=== PATIENT | male | born 1935 | race Hispanic/Latino ===

== ENCOUNTER 2021-11-15 12:24 | Inpatient (IN) | payer MEDICARE, OTHER ==
[~2021-11-15] VITALS: Ht 162.6 cm; Wt 65.8 kg
[2021-11-15 13:06] LABS: BASOPHILS % 0.1 % (0.0-1.0); HEMATOCRIT 28.1 % (38.2-49.6); HEMOGLOBIN 9.2 g/dL (14.0-18.0); LYMPHOCYTES # (AUTO) 0.4 (1.0-3.2); LYMPHOCYTES % 5.5 % (18.0-39.1); MEAN CORPUSCULAR HEMOGLOBIN 31.1 pg (28-32); MEAN CORPUSCULAR HGB CONC 32.7 g/dL (31-35); MEAN CORPUSCULAR VOLUME 94.9 fL (81-99); MONOCYTES # (AUTO) 0.6 (0.2-0.8); MONOCYTES % 8.5 % (4.4-11.3); NEUTROPHILS # (AUTO) 5.7 (2.1-6.9); NEUTROPHILS % 85.8 % (38.7-80.0); PLATELET COUNT 173 x10e3/uL (140-360); RED BLOOD COUNT 2.96 x10e6/uL (4.3-5.7); RED CELL DISTRIBUTION WIDTH 12.4 % (11.7-14.4)
[2021-11-15 13:21] LABS: ANION GAP 11.6 mmol/L (8-16); CALCIUM 8.1 mg/dL (8.4-10.2); CREATININE, SERUM 1.24 mg/dL (0.72-1.25); POTASSIUM 3.6 mmol/L (3.5-5.1)
[2021-11-15 13:33] LABS: CLARITY,URINE TURBID (CLEAR); COLOR,URINE RED (YELLOW); LEUKOCYTE ESTERASE ,URINE LARGE (NEGATIVE)
[2021-11-15 13:34] LABS: KETONES,URINE 1+ (NEGATIVE); NITRITE,URINE POSITIVE (NEGATIVE); PROTEIN,URINE DIPSTICK >=300 (NEGATIVE)
[2021-11-15 13:35] LABS: RBC,URINE >50 /HPF (0-5)
[2021-11-15 13:36] LABS: BACTERIA,URINE MANY /HPF; EPITHELIAL CELLS,URINE FEW /LPF
[2021-11-15] MEDS ORDERED: SODIUM CHLORIDE 0.9% 1000ML 1,000 ML IV ONE (13:45)
[2021-11-15] MEDS ORDERED: SODIUM CHLORIDE 0.9% 1000ML 1,000 ML ONE (13:48)
[2021-11-15] MEDS ORDERED: IOPAMIDOL 370 MG/ML 100 ML INFUS..BTL INJ ONE (13:54)
[2021-11-15] MEDS ORDERED: CEFTRIAXONE 1 GM VIAL IM ONE (14:00)
[2021-11-15] MEDS ORDERED: ACETAMINOPHEN 325 MG TAB PO ONE (14:15)
[2021-11-15] MEDS ORDERED: ONDANSETRON HCL INJ 2MG/ML 2ML 2 MG/ML VIAL IV PRN (16:30)
[2021-11-15 19:30] VITALS: BP 126/55
[2021-11-15] MEDS ORDERED: DOCUSATE SODIUM 100 MG CAP PO PRN (20:00)
[2021-11-15] MEDS ORDERED: ACETAMINOPHEN 325 MG TAB PO PRN (20:00)
[2021-11-15] MEDS ORDERED: FINASTERIDE5 MG PO (20:03)
[2021-11-15] MEDS ORDERED: AMLODIPINE BESYL5 MG PO (20:03)
[2021-11-15] MEDS ORDERED: FLOMAX0.4 MG PO (20:03)
[2021-11-15 20:06] VITALS: BP 126/55
[2021-11-15 21:49] VITALS: BP 126/55
[2021-11-16 05:56] VITALS: BP 133/70
[2021-11-16 06:09] LABS: BASOPHILS % 0.5 % (0.0-1.0); HEMATOCRIT 30.5 % (38.2-49.6); HEMOGLOBIN 9.4 g/dL (14.0-18.0); LYMPHOCYTES # (AUTO) 0.3 (1.0-3.2); LYMPHOCYTES % 5.3 % (18.0-39.1); MEAN CORPUSCULAR HEMOGLOBIN 31.6 pg (28-32); MEAN CORPUSCULAR HGB CONC 30.8 g/dL (31-35); MEAN CORPUSCULAR VOLUME 102.7 fL (81-99); MONOCYTES # (AUTO) 0.6 (0.2-0.8); NEUTROPHILS # (AUTO) 5.4 (2.1-6.9); NEUTROPHILS % 84.7 % (38.7-80.0); PLATELET COUNT 163 x10e3/uL (140-360); RED BLOOD COUNT 2.97 x10e6/uL (4.3-5.7); RED CELL DISTRIBUTION WIDTH 12.7 % (11.7-14.4)
[2021-11-16 06:40] LABS: ALBUMIN 2.6 g/dL (3.5-5.0); ALBUMIN/GLOBULIN RATIO 0.8 (0.8-2.0); ANION GAP 9.9 mmol/L (8-16); CREATININE, SERUM 0.86 mg/dL (0.72-1.25); POTASSIUM 3.9 mmol/L (3.5-5.1)
[2021-11-16 08:00] VITALS: BP 143/65
[2021-11-16] MEDS ORDERED: SODIUM CHLORIDE 0.9% 250ML 250 ML ONE (08:02)
[2021-11-16 08:11] VITALS: BP 143/65
[2021-11-16 11:44] VITALS: BP 102/58
[2021-11-16 15:11] LABS: FERRITIN 117.98 ng/mL (21.81-274.66)
[2021-11-16 16:19] VITALS: BP 97/53
[2021-11-16 20:00] VITALS: BP 122/59
[2021-11-17] VITALS (7 sets, daily range): BP systolic 106–141; BP diastolic 58–97
[2021-11-17] MEDS ORDERED: SODIUM FERRIC GLUCONATE COMPLX 125 MG in SODIUM CHLORIDE 0.9% 100 ML 100 ML IV SCH (09:00)
[2021-11-17] MEDS: CYANOCOBALAMIN INJ 1,000 MCG/ML VIAL IM SCH (09:59)
[2021-11-18] VITALS: BP 125/55
[2021-11-18 04:00] VITALS: BP 136/66
[2021-11-18 07:53] VITALS: BP 139/59
[2021-11-18] MEDS ORDERED: CEPHALEXIN500 MG PO (08:12)
[2021-11-18] MEDS ORDERED: FERROUS SULFAT325 MG PO (08:12)
[2021-11-18] MEDS ORDERED: B-121000 MCG PO (08:12)
[2021-11-18] MEDS: CYANOCOBALAMIN INJ 1,000 MCG/ML VIAL IM SCH (09:12)
[2021-11-18] MEDS ORDERED: ONDANSETRON HCL 4 MG ORAL DISINTEGRATING TAB PO PRN (10:15)
[2021-11-18 20:00] VITALS: BP 143/65
== END 2021-11-18 10:32 | disposition home or self-care (01) | DRG 699 ==
LOC: ER 13:05 → ERHOLD 16:20 → MED/SURG3 19:05
PROVIDERS: ADMIT Internal Medicine; ATTEND Internal Medicine
DX: T83.511A Infection and inflammatory reaction due to indwelling urethral catheter, initial encounter (principal); N17.9 Acute kidney failure, unspecified; N40.1 Benign prostatic hyperplasia with lower urinary tract symptoms; N39.0 Urinary tract infection, site not specified; D64.9 Anemia, unspecified; R33.8 Other retention of urine; R91.8 Other nonspecific abnormal finding of lung field; D50.9 Iron deficiency anemia, unspecified; E53.8 Deficiency of other specified B group vitamins; B96.20 Unspecified Escherichia coli [E. coli] as the cause of diseases classified elsewhere; Z20.822 Contact with and (suspected) exposure to COVID-19
CPT/HCPCS: 36415; 74177; 80048; 80053; 81001; 82607; 82728; 83540; 83605; 84466; 85025; 87040; 87086; 87186; 93005; 99284; J0696; J2916; J3420; J7030; J7050; Q9967; U0002

== ENCOUNTER 2021-11-24 18:20 | Emergency (ER) | payer MEDICARE, OTHER ==
[~2021-11-24] VITALS: Ht 162.6 cm; Wt 65.8 kg
[~2021-11-24 18:20] MED LIST: AMLODIPINE BESYL5 MG PO; B-121000 MCG PO; CEPHALEXIN500 MG PO; FERROUS SULFAT325 MG PO; FINASTERIDE5 MG PO; FLOMAX0.4 MG PO
[2021-11-24 19:25] LABS: BASOPHILS % 0.7 % (0.0-1.0); EOSINOPHILS # (AUTO) 0.1 (0.0-0.4); EOSINOPHILS % 1.4 % (0.0-6.0); HEMATOCRIT 26.4 % (38.2-49.6); HEMOGLOBIN 8.5 g/dL (14.0-18.0); LYMPHOCYTES % 17.5 % (18.0-39.1); MEAN CORPUSCULAR HEMOGLOBIN 31.1 pg (28-32); MEAN CORPUSCULAR HGB CONC 32.2 g/dL (31-35); MEAN CORPUSCULAR VOLUME 96.7 fL (81-99); MONOCYTES # (AUTO) 0.4 (0.2-0.8); MONOCYTES % 6.9 % (4.4-11.3); NEUTROPHILS # (AUTO) 4.2 (2.1-6.9); NEUTROPHILS % 72.6 % (38.7-80.0); PLATELET COUNT 351 x10e3/uL (140-360); RED BLOOD COUNT 2.73 x10e6/uL (4.3-5.7); RED CELL DISTRIBUTION WIDTH 13.6 % (11.7-14.4)
[2021-11-24 19:27] LABS: CLARITY,URINE TURBID (CLEAR); COLOR,URINE RED (YELLOW)
[2021-11-24 19:28] LABS: KETONES,URINE 2+ (NEGATIVE); LEUKOCYTE ESTERASE ,URINE LARGE (NEGATIVE); NITRITE,URINE NEGATIVE (NEGATIVE); PROTEIN,URINE DIPSTICK >=300 (NEGATIVE); URINE UROBILINOGEN >=8 mg/dL (0.2 - 1)
[2021-11-24 19:41] LABS: BACTERIA,URINE MODERATE /HPF; RBC,URINE >50 /HPF (0-5)
[2021-11-24 20:22] VITALS: BP 145/65
== END 2021-11-24 20:19 | disposition home or self-care (01) ==
LOC: ER 18:53
DX: R31.0 Gross hematuria (principal); I10 Essential (primary) hypertension
CPT/HCPCS: 36415; 81001; 85025; 87086; 99283

== ENCOUNTER 2022-08-28 11:53 | Emergency (ER) | payer MEDICARE, OTHER ==
[~2022-08-28] VITALS: Ht 162.6 cm; Wt 65.8 kg
[2022-08-28 14:49] VITALS: BP 165/87
== END 2022-08-28 14:44 | disposition home or self-care (01) ==
LOC: ER 12:16
DX: Z46.6 Encounter for fitting and adjustment of urinary device (principal); N40.1 Benign prostatic hyperplasia with lower urinary tract symptoms; I10 Essential (primary) hypertension
CPT/HCPCS: 87086; 87186; 99283

== ENCOUNTER 2023-01-03 12:32 | Emergency (ER) | payer MEDICARE, OTHER ==
[~2023-01-03] VITALS: Ht 162.6 cm; Wt 65.8 kg
[2023-01-03 13:30] LABS: BASOPHILS % 0.5 % (0.0-1.0); HEMOGLOBIN 10.1 g/dL (14.0-18.0); LYMPHOCYTES # (AUTO) 0.5 (1.0-3.2); LYMPHOCYTES % 6.1 % (18.0-39.1); MEAN CORPUSCULAR HEMOGLOBIN 29.4 pg (28-32); MEAN CORPUSCULAR HGB CONC 32.6 g/dL (31-35); MEAN CORPUSCULAR VOLUME 90.1 fL (81-99); MONOCYTES # (AUTO) 0.3 (0.2-0.8); MONOCYTES % 4.6 % (4.4-11.3); NEUTROPHILS # (AUTO) 6.6 (2.1-6.9); NEUTROPHILS % 88.4 % (38.7-80.0); PLATELET COUNT 214 x10e3/uL (140-360); RED BLOOD COUNT 3.44 x10e6/uL (4.3-5.7); RED CELL DISTRIBUTION WIDTH 13.8 % (11.7-14.4)
[2023-01-03] MEDS ORDERED: Vancomycin IV 1 GM in SODIUM CHLORIDE 0.9% 250ML 250 ML IV ONE (13:30)
[2023-01-03] MEDS ORDERED: CEFTRIAXONE 1 GM VIAL ONE (13:32)
[2023-01-03] MEDS ORDERED: SODIUM CHLORIDE 0.9% 250ML 250 ML ONE (13:32)
[2023-01-03] MEDS ORDERED: Vancomycin IV 1 GM VIAL ONE (13:32)
[2023-01-03 13:35] LABS: COLOR,URINE YELLOW (YELLOW)
[2023-01-03 13:36] LABS: CLARITY,URINE CLOUDY (CLEAR); KETONES,URINE NEGATIVE (NEGATIVE); LEUKOCYTE ESTERASE ,URINE MODERATE (NEGATIVE); NITRITE,URINE NEGATIVE (NEGATIVE); PROTEIN,URINE DIPSTICK >=300 (NEGATIVE); URINE UROBILINOGEN 0.2 mg/dL (0.2 - 1)
[2023-01-03 13:44] LABS: INR 1.04; PROTHROMBIN TIME 14.2 seconds (11.9-14.5)
[2023-01-03 13:45] LABS: PARTIAL THROMBOPLASTIN TIME 27.8 seconds (23.8-35.5)
[2023-01-03 13:50] LABS: BACTERIA,URINE MANY /HPF
[2023-01-03 13:54] LABS: CALCIUM 9.1 mg/dL (8.4-10.2); CREATININE, SERUM 1.21 mg/dL (0.72-1.25); MAGNESIUM 2.1 MG/DL (1.3-2.1)
[2023-01-03 14:09] LABS: ALBUMIN 3.3 g/dL (3.5-5.0); ALBUMIN/GLOBULIN RATIO 0.9 (0.8-2.0)
[2023-01-03] MEDS ORDERED: CEFDINIR300 MG PO (15:32)
[2023-01-03] MEDS ORDERED: MACROBID 100 M100 MG PO (15:32)
[2023-01-03 16:26] VITALS: O2SAT 100
== END 2023-01-03 17:15 | disposition home or self-care (01) ==
LOC: ER 13:08
DX: T83.9XXA Unspecified complication of genitourinary prosthetic device, implant and graft, initial encounter (principal); N39.0 Urinary tract infection, site not specified; B96.20 Unspecified Escherichia coli [E. coli] as the cause of diseases classified elsewhere; B95.2 Enterococcus as the cause of diseases classified elsewhere; N40.1 Benign prostatic hyperplasia with lower urinary tract symptoms; R33.8 Other retention of urine; I10 Essential (primary) hypertension; Z20.822 Contact with and (suspected) exposure to COVID-19; Z79.899 Other long term (current) drug therapy; Y84.6 Urinary catheterization as the cause of abnormal reaction of the patient, or of later complication, without mention of misadventure at the time of the procedure; Y92.009 Unspecified place in unspecified non-institutional (private) residence as the place of occurrence of the external cause
CPT/HCPCS: 0223U; 36415; 51702; 80053; 81001; 83735; 85025; 85610; 85730; 87086; 87186; 99283; J0696; J3370; J7050

== ENCOUNTER 2023-04-08 09:30 | Emergency (ER) | payer MEDICARE ==
[~2023-04-08] VITALS: Ht 162.6 cm; Wt 65.8 kg
[~2023-04-08 09:30] MED LIST changes: +CEFDINIR300 MG PO; +MACROBID 100 M100 MG PO
[2023-04-08] MEDS ORDERED: LIDOCAINE JELLY 2% 10ML URO-JET ONE (09:54)
[2023-04-08] MEDS ORDERED: LIDOCAINE JELLY 2% 10ML URO-JET TOP ONE (10:00)
[2023-04-08] MEDS ORDERED: CIPRO500 MG PO (10:39)
[2023-04-08 10:46] LABS: CLARITY,URINE CLOUDY (CLEAR); COLOR,URINE YELLOW (YELLOW); KETONES,URINE NEGATIVE (NEGATIVE); LEUKOCYTE ESTERASE ,URINE LARGE (NEGATIVE); NITRITE,URINE NEGATIVE (NEGATIVE); PROTEIN,URINE DIPSTICK NEGATIVE (NEGATIVE); URINE UROBILINOGEN 0.2 mg/dL (0.2 - 1)
[2023-04-08 10:56] LABS: BACTERIA,URINE MANY /HPF; EPITHELIAL CELLS,URINE RARE /LPF
[2023-04-08 10:57] LABS: RBC,URINE 21-50 /HPF (0-5)
[2023-04-08 11:12] VITALS: O2SAT 100
== END 2023-04-08 12:03 | disposition home or self-care (01) ==
LOC: ER 09:37
DX: R33.9 Retention of urine, unspecified (principal); I10 Essential (primary) hypertension
CPT/HCPCS: 51700; 81001; 87086; 87186; 99283

== ENCOUNTER 2023-05-29 11:43 | Emergency (ER) | payer MEDICARE, OTHER ==
[~2023-05-29] VITALS: Ht 162.6 cm; Wt 65.8 kg
[~2023-05-29 11:43] MED LIST changes: +CIPRO500 MG PO
[2023-05-29] MEDS ORDERED: LIDOCAINE JELLY 2% 10ML URO-JET ONE (16:10)
[2023-05-29] MEDS ORDERED: LIDOCAINE JELLY 2% 10ML URO-JET TOP ONE (16:15)
[2023-05-29 16:48] LABS: BILIRUBIN,URINE NEGATIVE (NEGATIVE); CLARITY,URINE HAZY (CLEAR); COLOR,URINE RED (YELLOW); GLUCOSE, URINE NEGATIVE (NEGATIVE); KETONES,URINE TRACE (NEGATIVE); LEUKOCYTE ESTERASE ,URINE LARGE (NEGATIVE); NITRITE,URINE POSITIVE (NEGATIVE); PH,URINE 7 (5 - 7); PROTEIN,URINE DIPSTICK >=300 (NEGATIVE); URINE UROBILINOGEN 0.2 mg/dL (0.2 - 1)
[2023-05-29 17:01] LABS: BACTERIA,URINE FEW /HPF; RBC,URINE >50 /HPF (0-5); WBC,URINE (MAN) 0-5 /HPF (0-5)
[2023-05-29] MEDS ORDERED: CEPHALEXIN500 MG PO (17:31)
[2023-05-29 18:36] VITALS: BP 183/79; PULSE 67; RESP 18; TEMP 98.5; O2SAT 100
== END 2023-05-29 17:48 | disposition home or self-care (01) ==
LOC: ER 12:06
DX: Z46.6 Encounter for fitting and adjustment of urinary device (principal); N39.0 Urinary tract infection, site not specified; I10 Essential (primary) hypertension
CPT/HCPCS: 51700; 81001; 87086; 87186; 99283